=== PATIENT | female | born 1995 | race Caucasian/White ===

== ENCOUNTER 2018-09-11 12:00 | Observation (INO) | payer MEDICAID ==
[~2018-09-11] VITALS: Ht 157.5 cm; Wt 92.1 kg
[2018-09-11] MEDS ORDERED: FOLI1TAB90 PO (12:16)
[2018-09-11 12:27] VITALS: BP 126/60
[2018-09-11] MEDS ORDERED: TERBUTALINE 1 MG/ML VIAL SUBQ SCH (13:35)
[2018-09-11] MEDS ORDERED: TERBUTALINE 1 MG/ML VIAL SUBQ ONE (13:47)
== END 2018-09-11 16:00 | disposition home or self-care (01) ==
LOC: MLD 12:00
PROVIDERS: ADMIT Obstetrics & Gynecology; ATTEND Obstetrics & Gynecology
DX: O26.853 Spotting complicating pregnancy, third trimester (principal); Z3A.36 36 weeks gestation of pregnancy
CPT/HCPCS: 36415; 85379; 96372; G0378; J3105; 81000

== ENCOUNTER 2018-10-02 23:45 | Inpatient (IN) | payer MEDICAID ==
[~2018-10-02] VITALS: Ht 160 cm; Wt 92.1 kg
[~2018-10-02 23:45] MED LIST: FOLI1TAB90 PO
[2018-10-03] MEDS ORDERED: OXYTOCIN 20 UNITS in LACTATED RINGERS 1,000 ML IV SCH (01:54)
[2018-10-03] MEDS ORDERED: LACTATED RINGERS 1,000 ML IV SCH (01:54)
[2018-10-03] MEDS ORDERED: ONDANSETRON 4 MG/2 ML VIAL IVP PRN (01:55)
[2018-10-03] MEDS ORDERED: NALBUPHINE 10 MG/ML AMP IVP PRN (01:55)
[2018-10-03 02:27] LABS: BASOPHILS % (AUTO) 0.1 % (0.0-2.0); EOSINOPHILS # (AUTO) 0.1 K/uL (0-0.4); EOSINOPHILS % (AUTO) 0.7 % (0.0-4.0); HEMATOCRIT 32.5 % (36-48); HEMOGLOBIN 10.5 g/dL (12.0-16.0); LYMPHOCYTES # (AUTO) 2.1 K/uL (2.5-16.5); MEAN CORPUSCULAR HEMOGLOBIN 26 pg (27-31); MEAN CORPUSCULAR HGB CONC 33 g/dL (33-37); MEAN CORPUSCULAR VOLUME 78.6 fL (80-94); MONOCYTES # (AUTO) 0.9 K/uL (0.8-1.0); MONOCYTES % (AUTO) 10.3 % (1.7-9.3); NEUTROPHILS % (AUTO) 65.9 % (42.2-75.2); PLATELET COUNT (AUTO) 223 K/uL (140-450); RED BLOOD CELL COUNT(AUTO) 4.13 MIL/uL (4.20-5.40); RED CELL DISTRIBUTION WIDTH 14.9 % (11.6-13.7); WHITE BLOOD COUNT (AUTO) 9.2 K/uL (4.8-10.8)
[2018-10-03 03:10] LABS: ALBUMIN 2.3 g/dL (3.4-5.0); ANION GAP 12.2 (8-16); CARBON DIOXIDE 25.9 mmol/L (21-32); CREATININE 0.6 mg/dL (0.6-1.3); POTASSIUM 4.1 mmol/L (3.5-5.1); TOTAL BILIRUBIN 0.2 mg/dL (0.0-1.0)
[2018-10-03] MEDS ORDERED: AMPICILLIN 2,000 MG VIAL ONE (05:30)
[2018-10-03 05:48] VITALS: BP 106/60
--- NOTE | 2018-10-03 08:10 | NUR ---
PATIENT HAS BEEN SCREENED AND CATEGORIZED LOW NUTRITION RISK. PATIENT WILL BE SEEN WITHIN 7 DAYS OF ADMISSION. 10/09/[address]
[2018-10-03] MEDS: AMPICILLIN 1,000 MG in NACL 0.9% 50 ML IV SCH ×3 (09:31→16:00)
[2018-10-03] MEDS ORDERED: AMPICILLIN 1,000 MG VIAL ONE ×3 (09:34→17:38)
== END 2018-10-03 20:00 | disposition home or self-care (01) | DRG 565 ==
LOC: MLD 23:45 → OBSVTOIN 23:45 → INTOOBSV 23:45 → UNDOADMOB 23:45 → MLD 10-03 09:54 → OBSVTOIN 10-03 09:54
PROVIDERS: ADMIT Obstetrics & Gynecology; ATTEND Obstetrics & Gynecology
DX: O47.03 False labor before 37 completed weeks of gestation, third trimester (principal); Z3A.36 36 weeks gestation of pregnancy
CPT/HCPCS: 36415; 76815; 80053; 85025; 86592; 86762; 86886; 86900; 86901; 87653-90; J0290; J7120; Q0092

== ENCOUNTER 2018-10-04 18:30 | Inpatient (IN) | payer MEDICAID ==
[~2018-10-04] VITALS: Ht 160 cm; Wt 92.5 kg
[2018-10-04] MEDS ORDERED: OXYTOCIN 10 UNITS/ML VIAL ONE (19:12)
[2018-10-04] MEDS ORDERED: LIDOCAINE 1% 500 MG/50 ML VIAL ONE (19:12)
[2018-10-04 19:16] VITALS: BP 117/68
[2018-10-04 19:24] LABS: BASOPHILS % (AUTO) 0.2 % (0.0-2.0); EOSINOPHILS % (AUTO) 0.1 % (0.0-4.0); HEMATOCRIT 36.2 % (36-48); HEMOGLOBIN 11.6 g/dL (12.0-16.0); LYMPHOCYTES # (AUTO) 1.5 K/uL (2.5-16.5); LYMPHOCYTES % (AUTO) 14.9 % (20.5-51.1); MEAN CORPUSCULAR HEMOGLOBIN 25 pg (27-31); MEAN CORPUSCULAR HGB CONC 32 g/dL (33-37); MEAN CORPUSCULAR VOLUME 78.7 fL (80-94); MONOCYTES # (AUTO) 0.6 K/uL (0.8-1.0); NEUTROPHILS # (AUTO) 7.9 K/uL (1.8-7.7); NEUTROPHILS % (AUTO) 78.8 % (42.2-75.2); PLATELET COUNT (AUTO) 247 K/uL (140-450); RED BLOOD CELL COUNT(AUTO) 4.59 MIL/uL (4.20-5.40)
[2018-10-04 19:27] LABS: APPEARANCE,URINE HAZY (CLEAR); COLOR,URINE YELLOW (YELLOW); PH,URINE 6.5 (5.0-9.0)
[2018-10-04 19:28] LABS: BILIRUBIN,URINE 1+ (NEGATIVE); BLOOD, URINE 1+ (NEGATIVE); LEUKOCYTE ESTERASE ,URINE 1+ (NEGATIVE); NITRITE, URINE NEGATIVE (NEGATIVE); UGLUCOSE NEGATIVE (NEGATIVE)
[2018-10-04 19:30] LABS: BARBITURATE, URINE NEG. ng/ml (NEG <=200); BENZODIAZEPINE, URINE NEG. ng/mL (NEG <=200); CANNABINOID, URINE NEG. ng/mL (NEG <=50); COCAINE, URINE NEG. ng/mL (NEG <=300); OPIATE, URINE NEG. ng/mL (NEG <=2000); PHENCYCLIDINE SCREEN,URINE NEG. ng/mL (NEG <=25)
[2018-10-04 19:42] LABS: ANION GAP 17.8 (8-16); CARBON DIOXIDE 21.8 mmol/L (21-32); CREATININE 0.7 mg/dL (0.6-1.3); POTASSIUM 3.6 mmol/L (3.5-5.1)
[2018-10-04 19:54] LABS: ALBUMIN 2.8 g/dL (3.4-5.0); TOTAL BILIRUBIN 0.4 mg/dL (0.0-1.0)
[2018-10-04] MEDS ORDERED: OXYTOCIN 20 UNITS/LR PREMIX 1,000 ML IV ONE (19:57)
[2018-10-04] MEDS ORDERED: OXYTOCIN 20 UNITS in LACTATED RINGERS 1,000 ML IV SCH ×2 (20:00→22:00)
[2018-10-04] MEDS ORDERED: LACTATED RINGERS 1,000 ML IV SCH (20:00)
[2018-10-04] MEDS ORDERED: MEASLES, MUMPS, AND RUBELLA 1 VIAL SQVAC PRN (21:05)
[2018-10-04] MEDS ORDERED: BISACODYL 5 MG TABEC PO PRN (21:05)
[2018-10-04] MEDS ORDERED: ACETAMINOPHEN 325 MG TAB PO PRN (21:05)
[2018-10-04] MEDS ORDERED: METHYLERGONOVINE 0.2 MG/ML AMP ONE (23:28)
[2018-10-05] MEDS ORDERED: METHYLERGONOVINE 0.2 MG/ML AMP IM SCH
[2018-10-05] MEDS: IBUPROFEN 600 MG TAB PO PRN (06:06)
[2018-10-05 08:24] LABS: BASOPHILS % (AUTO) 0.2 % (0.0-2.0); EOSINOPHILS % (AUTO) 0.1 % (0.0-4.0); HEMATOCRIT 32.1 % (36-48); HEMOGLOBIN 10.3 g/dL (12.0-16.0); LYMPHOCYTES # (AUTO) 2.7 K/uL (2.5-16.5); LYMPHOCYTES % (AUTO) 19.7 % (20.5-51.1); MEAN CORPUSCULAR HEMOGLOBIN 25 pg (27-31); MEAN CORPUSCULAR HGB CONC 32 g/dL (33-37); MEAN CORPUSCULAR VOLUME 78.4 fL (80-94); MONOCYTES # (AUTO) 0.7 K/uL (0.8-1.0); MONOCYTES % (AUTO) 4.8 % (1.7-9.3); NEUTROPHILS # (AUTO) 10.3 K/uL (1.8-7.7); NEUTROPHILS % (AUTO) 75.2 % (42.2-75.2); PLATELET COUNT (AUTO) 198 K/uL (140-450); RED BLOOD CELL COUNT(AUTO) 4.09 MIL/uL (4.20-5.40); RED CELL DISTRIBUTION WIDTH 14.9 % (11.6-13.7); WHITE BLOOD COUNT (AUTO) 13.7 K/uL (4.8-10.8)
--- NOTE | 2018-10-05 09:54 | NUR ---
PATIENT HAS BEEN SCREENED AND CATEGORIZED LOW NUTRITION RISK. PATIENT WILL BE SEEN WITHIN 7 DAYS OF ADMISSION. 10/11/[address]
[2018-10-05] MEDS ORDERED: INFLUENZA VIRUS VACCINE QUAD 0.5 ML SYR IMVAC PRN (22:52)
[2018-10-06] MEDS: IBUPROFEN 600 MG TAB PO PRN (06:26)
== END 2018-10-06 16:00 | disposition home or self-care (01) | DRG 560 ==
LOC: MLD 18:30 → MFCC 10-05 00:12
PROVIDERS: ADMIT Obstetrics & Gynecology; ATTEND Obstetrics & Gynecology
PROC: 10E0XZZ Delivery of Products of Conception, External Approach (ICD-10-PCS; principal; 2018-10-04)
PROC: 10907ZC Drainage of Amniotic Fluid, Therapeutic from Products of Conception, Via Natural or Artificial Opening (ICD-10-PCS; 2018-10-04)
PROC: 3E033VJ Introduction of Other Hormone into Peripheral Vein, Percutaneous Approach (ICD-10-PCS; 2018-10-04)
PROC: 3E02340 Introduction of Influenza Vaccine into Muscle, Percutaneous Approach (ICD-10-PCS; 2018-10-04)
DX: O69.81X0 Labor and delivery complicated by cord around neck, without compression, not applicable or unspecified (principal); Z23 Encounter for immunization; Z37.0 Single live birth; Z3A.40 40 weeks gestation of pregnancy
CPT/HCPCS: 36415; 59409; 80053; 80305; 81001; 85025; 86886; 86900; 86901; 87086; 87340; J2001; J2210; J2590; J7120

== ENCOUNTER 2022-10-23 12:31 | Emergency (ER) | payer MEDICAID ==
[~2022-10-23] VITALS: Ht 157.5 cm; Wt 114.3 kg
[2022-10-23 12:41] VITALS: BP 131/82
--- NOTE | 2022-10-23 12:45 | NUR ---
PT AMBULATED TO ER BED 7
--- NOTE | 2022-10-23 13:01 | NUR ---
ALEX ARREAGA AT BEDSIDE EVALUATING PT
[2022-10-23 13:19] LABS: APPEARANCE,URINE CLEAR (CLEAR); BILIRUBIN,URINE NEGATIVE (NEGATIVE); BLOOD, URINE TRACE-I (NEGATIVE); COLOR,URINE YELLOW (YELLOW); LEUKOCYTE ESTERASE ,URINE 1+ (NEGATIVE); NITRITE, URINE NEGATIVE (NEGATIVE); PH,URINE 6.5 (5.0-9.0); UGLUCOSE NEGATIVE (NEGATIVE)
[2022-10-23] MEDS ORDERED: KETOROLAC 30 MG/ML VIAL IVP ONE (13:20)
[2022-10-23] MEDS ORDERED: ONDANSETRON 4 MG/2 ML VIAL IVP ONE (13:20)
[2022-10-23 13:28] LABS: WBC,URINE 80-100 /HPF (0-5)
[2022-10-23 14:17] LABS: BASOPHILS % (AUTO) 0.1 % (0.0-2.0); EOSINOPHILS % (AUTO) 0.1 % (0.0-4.0); HEMATOCRIT 38.9 % (36-48); HEMOGLOBIN 12.5 g/dL (12.0-16.0); LYMPHOCYTES # (AUTO) 0.7 K/uL (2.5-16.5); LYMPHOCYTES % (AUTO) 5.2 % (20.5-51.1); MEAN CORPUSCULAR HEMOGLOBIN 26 pg (27-31); MEAN CORPUSCULAR HGB CONC 32 g/dL (33-37); MONOCYTES # (AUTO) 0.6 K/uL (0.8-1.0); MONOCYTES % (AUTO) 4.8 % (1.7-9.3); NEUTROPHILS # (AUTO) 11.2 K/uL (1.8-7.7); NEUTROPHILS % (AUTO) 89.8 % (42.2-75.2); PLATELET COUNT (AUTO) 227 K/uL (140-450); RED BLOOD CELL COUNT(AUTO) 4.86 MIL/uL (4.20-5.40); RED CELL DISTRIBUTION WIDTH 15.5 % (11.6-13.7); WHITE BLOOD COUNT (AUTO) 12.5 K/uL (4.8-10.8)
[2022-10-23 14:29] LABS: ALBUMIN 4.1 g/dL (3.4-5.0); ANION GAP 12.3 (8-16); CARBON DIOXIDE 26.8 mmol/L (21-32); CREATININE 1.1 mg/dL (0.6-1.3); POTASSIUM 4.1 mmol/L (3.5-5.1); TOTAL BILIRUBIN 0.6 mg/dL (0.0-1.0)
[2022-10-23] MEDS ORDERED: CEPH-588 PO (15:37)
[2022-10-23] MEDS ORDERED: ACET-8905 PO (15:37)
[2022-10-23] MEDS ORDERED: TAMS0.4C96 PO (15:37)
[2022-10-23] MEDS ORDERED: ACETAMINOPHEN EXTRA STRENGTH 500 MG TAB PO ONE (16:40)
--- NOTE | 2022-10-23 16:57 | NUR ---
Patient discharged with v/s stable. Written and verbal after care instructions given and explained. Patient alert, oriented and verbalized understanding of instructions. Ambulatory with steady gait. All questions addressed prior to discharge. ID band removed. Patient advised to follow up with PMD. Rx of Keflex, flomax, norco given. Patient educated on indication of medication including possible reaction and side effects. Opportunity to ask questions provided and answered.
[2022-10-23] MEDS ORDERED: IBUP-2213 PO (17:49)
== END 2022-10-23 16:57 | disposition home or self-care (01) ==
LOC: MED 12:31
DX: N13.9 Obstructive and reflux uropathy, unspecified (principal); Z20.822 Contact with and (suspected) exposure to COVID-19; N39.0 Urinary tract infection, site not specified; Z79.899 Other long term (current) drug therapy
CPT/HCPCS: 36415; 74176; 80053; 81001; 81025; 83690; 85025; 87086; 87426; 96374; 96375; 99285; J1885; J2405